=== PATIENT | male | born 2005 | race Caucasian/White ===

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

== ENCOUNTER 2024-03-21 05:00 | Emergency (ER) | payer OTHER ==
[~2024-03-21] VITALS: Ht 170.1 cm; Wt 63.5 kg
[~2024-03-21 05:00] MED LIST changes: +IBU600 M1 PO; +PENICILLIN VK500 MG PO; +TYLENOL325 M1 PO
[2024-03-21] MEDS ORDERED: Tdap Vaccine 0.5 ML SYR (Adult Vaccine) IM ONE (05:15)
== END 2024-03-21 05:52 | disposition home or self-care (01) ==
LOC: ED 05:00
DX: S61.211A Laceration without foreign body of left index finger without damage to nail, initial encounter (principal); F41.9 Anxiety disorder, unspecified; F32.A Depression, unspecified; W26.8XXA Contact with other sharp object(s), not elsewhere classified, initial encounter; Y93.89 Activity, other specified; Y92.009 Unspecified place in unspecified non-institutional (private) residence as the place of occurrence of the external cause; Y99.8 Other external cause status

== ENCOUNTER 2024-07-05 19:17 | Emergency (ER) | payer OTHER ==
[~2024-07-05] VITALS: Ht 170.1 cm; Wt 65.8 kg
[2024-07-05] MEDS ORDERED: PENICILLIN VK500 MG PO (20:02)
[2024-07-05] MEDS ORDERED: PENICILLIN V POTASSIUM 500 MG TAB PO ONE (20:05)
== END 2024-07-05 20:03 | disposition home or self-care (01) ==
LOC: ED 19:17
DX: K04.7 Periapical abscess without sinus (principal); F41.9 Anxiety disorder, unspecified; F32.A Depression, unspecified